=== PATIENT | female | born 2000 | race Caucasian/White ===

== ENCOUNTER 2020-07-19 12:00 | Emergency (ER) | payer MEDICAID, SELFPAY ==
[~2020-07-19] VITALS: Ht 167.6 cm; Wt 63.5 kg
[2020-07-19 12:00] VITALS: BP_SYST 116
[2020-07-19 12:50] VITALS: BP_SYST 116
== END 2020-07-19 12:50 | disposition home or self-care (01) ==
LOC: SED 12:00
DX: R50.9 Fever, unspecified (principal); R05 Cough; J02.9 Acute pharyngitis, unspecified
CPT/HCPCS: 99283; C9803; U0003

== ENCOUNTER 2024-02-10 16:21 | Emergency (ER) | payer MEDICAID ==
[~2024-02-10] VITALS: Ht 167.6 cm; Wt 81.6 kg
[2024-02-10 16:48] VITALS: BP_SYST 125; PULSE 88; RESP 16; TEMP 97.7; O2SAT 98
[2024-02-10 17:19] LABS: BILIRUBIN,URINE NEGATIVE (NEGATIVE); BLOOD, URINE NEGATIVE (NEGATIVE); CLARITY/URINE CLEAR (CLEAR); COLOR,URINE YELLOW (YELLOW); GLUCOSE,URINE NEGATIVE (NEGATIVE); KETONES,URINE NEGATIVE (NEGATIVE); LEUKOCYTE ESTERASE ,URINE NEGATIVE (NEGATIVE); NITRITE, URINE NEGATIVE (NEGATIVE); PROTEIN URINE NEGATIVE (NEGATIVE)
[2024-02-10 17:41] LABS: BASOPHILS % (AUTO) 0.7 % (0.0-2.0); EOSINOPHILS # (AUTO) 0.4 K/uL (0.0-0.4); EOSINOPHILS % (AUTO) 5.4 % (0.0-4.0); HEMATOCRIT 40.6 % (36-48); HEMOGLOBIN 14.1 g/dL (12.0-16.0); LYMPHOCYTES % (AUTO) 29.9 % (20.5-51.5); MEAN CORPUSCULAR HEMOGLOBIN 32 pg (27-31); MEAN CORPUSCULAR HGB CONC 35 % (32-36); MEAN CORPUSCULAR VOLUME 92 fL (79.0-98.0); MONOCYTES # (AUTO) 0.6 K/uL (0.0-1.0); MONOCYTES % (AUTO) 8.7 % (1.7-9.3); NEUTROPHILS # (AUTO) 3.6 K/uL (1.8-7.7); NEUTROPHILS % (AUTO) 55.3 % (40.0-70.0); PLATELET COUNT (AUTO) 263 K/uL (130-430); RED BLOOD CELL COUNT(AUTO) 4.44 MIL/uL (4.2-6.2); WHITE BLOOD COUNT (AUTO) 6.5 K/uL (4.8-10.8)
[2024-02-10 17:43] LABS: SERUM HCG (QUALITATIVE) NEGATIVE (NEGATIVE)
[2024-02-10 17:53] LABS: ALBUMIN 3.9 g/dL (3.4-4.8); BILIRUBIN,DIRECT 0.1 mg/dL (0.0-0.3); CREATININE 0.91 mg/dL (0.55-1.30); POTASSIUM 3.9 mmol/L (3.5-5.1); TOTAL BILIRUBIN 0.4 mg/dL (0.0-1.0); TOTAL PROTEIN, SERUM 7.5 g/dL (6.4-8.3)
[2024-02-10] MEDS ORDERED: ONDA-8 TL (19:04)
[2024-02-10] MEDS ORDERED: OMEP20CA15 PO (19:04)
[2024-02-10 19:13] VITALS: TEMP 96.9; O2SAT 95
[2024-02-10 19:20] VITALS: BP_SYST 116; PULSE 97; RESP 18
== END 2024-02-10 19:21 | disposition home or self-care (01) ==
LOC: SED 16:21
DX: K29.70 Gastritis, unspecified, without bleeding (principal); R10.13 Epigastric pain
CPT/HCPCS: 36415; 76705; 80048; 80076; 81001; 81003; 82150; 83690; 84703; 85025; 99284

== ENCOUNTER 2024-07-10 13:26 | Emergency (ER) | payer MEDICAID ==
[~2024-07-10 13:26] MED LIST: OMEP20CA15 PO; ONDA-8 TL
== END 2024-07-10 13:45 | disposition left against medical advice (07) ==
LOC: SED 13:26
DX: R51.9 Headache, unspecified (principal); R09.89 Other specified symptoms and signs involving the circulatory and respiratory systems; Z53.21 Procedure and treatment not carried out due to patient leaving prior to being seen by health care provider